=== PATIENT | female | born 1955 | race African-American/Black ===

== ENCOUNTER 2017-08-11 10:36 | Emergency (ER) | payer OTHER ==
[2017-08-11 10:44] VITALS: BP 152/72; PULSE 100; TEMP 99; BMI 26.5
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
[2017-08-11] MEDS ORDERED: BACITRACIN 15 GM TUBE TOPICAL OINTMENT TP ONE (11:05)
[2017-08-11] MEDS ORDERED: BACITRACIN 15 GM TUBE TOPICAL OINTMENT ONE (11:08)
== END 2017-08-11 11:14 | disposition home or self-care (01) ==
LOC: JERFT 10:36
DX: S20.319A Abrasion of unspecified front wall of thorax, initial encounter (principal); S60.512A Abrasion of left hand, initial encounter; Y04.2XXA Assault by strike against or bumped into by another person, initial encounter; Y93.F9 Activity, other caregiving; Y92.230 Patient room in hospital as the place of occurrence of the external cause; Y99.0 Civilian activity done for income or pay; E13.22 Other specified diabetes mellitus with diabetic chronic kidney disease; I12.0 Hypertensive chronic kidney disease with stage 5 chronic kidney disease or end stage renal disease; N18.6 End stage renal disease; Z99.2 Dependence on renal dialysis; Z85.3 Personal history of malignant neoplasm of breast; Z85.41 Personal history of malignant neoplasm of cervix uteri
CPT/HCPCS: 99281-25